=== PATIENT | female | born 1960 ===

== ENCOUNTER → 2018-01-08 | Outpatient (CLI) | payer OTHER ==
[~2018-01-08] MED LIST: ALBU8.5H IH; AZIT-1 PO; BENZ100C4 PO; BLOO-1456 MC; BLOO-725 MC; BLOO1STR38 MC; CETI-169 PO; CHOL200025 PO; CIPR-344 PO; INSU100I28 SQ; INSU100I30 SQ; INSU100V24 SQ; LEVO-85 PO; LEVO25TA61 PO; LEVO50TA86 PO; LEVO75TA73 PO; LEVO88TA45 PO; LISI-362 PO; METR-160 PO; PNEI IJ; PRAV40TA78 PO; ROSU20TA13 PO; TRAM-420 PO; VENL150C61 PO; VENL75CA58 PO
== END ==
LOC: LAB 09:48
PROVIDERS: ATTEND Emergency Medicine
DX: E11.9 Type 2 diabetes mellitus without complications (principal)
CPT/HCPCS: 36415; 82310; 82374; 82435; 82565; 82947; 83036; 84132; 84295; 84520

== ENCOUNTER → 2018-01-09 | Outpatient (CLI) | payer OTHER ==
[~2018-01-09] MED LIST changes: +IOPAMIDOL 76% 100 ML INFUS BTL 0 ML ONE
--- NOTE | 2018-01-09 15:26 | RADIOLOGY IMAGING REPORT ---
FACILITY: [facility] PATIENT NAME: Valeria Blackwell : 1960 MR: [id number] V: [id number] EXAM DATE: ORDERING PHYSICIAN: DANIELLE MAZARIEGOS TECHNOLOGIST: Location: Patient: Valeria Blackwell : 1960 Visit/Account:[id number] Date of Sevice: 01/09/2018 EXAMINATION: CT abdomen and pelvis without IV contrast HISTORY: Left lower abdominal pain. TECHNIQUE: Axial CT images of the abdomen and pelvis were obtained without IV contrast, with saucedo l and sagittal 2D reconstructed images. One of the following dose optimization techniques was utilized in the performance of this exam: Autom ated exposure control; adjustment of the mA and/or kV according to the patient's size; or use of an i terative reconstruction technique. Specific details can be referenced in the facility's radiology C T exam operational policy. COMPARISON: None. FINDINGS: Evaluation of the solid and viscus parenchymal organs is limited without the benefit of IV contrast. Liver: Negative. Gallbladder and bile ducts: Cholecystectomy. No bile duct dilatation. Spleen: Negative. Pancreas: Negative. Adrenal glands: Negative. Kidneys: Negative. No urinary calculi or hydronephrosis. Bowel and peritoneum: The small bowel and colon are normal in caliber, without evidence of obstructi on or any focal inflammatory process. Normal appendix. No free fluid or free intraperitoneal air. Mod erate hiatal hernia. Pelvic structures: Negative. Lymph node assessment: Negative. Vessels: Normal caliber abdominal aorta. Musculoskeletal: Scattered degenerative changes throughout the spine. No acute osseous findings. Body wall: Negative. Lung bases: Negative. IMPRESSION: 1. No acute intra-abdominal findings by noncontrast CT imaging. No source of left-sided pain is ident ified. 2. Cholecystectomy. 3. Moderate hiatal hernia. Report Dictated By: Aron Vasquez MD at 01/09/2018 3:15 PM Report E-Signed By: Aron Vasquez MD at 01/09/2018 3:21 PM WSN:[id number]
== END ==
LOC: RAD 14:04
PROVIDERS: ATTEND Emergency Medicine
DX: K44.9 Diaphragmatic hernia without obstruction or gangrene (principal); Z90.49 Acquired absence of other specified parts of digestive tract
CPT/HCPCS: 74176; Q9967

== ENCOUNTER → 2018-01-22 | Outpatient (CLI) | payer OTHER ==
[~2018-01-22] MED LIST changes: -IOPAMIDOL 76% 100 ML INFUS BTL 0 ML ONE; -ROSU20TA13 PO; +ROSU20TA5 PO
== END ==
LOC: LAB 13:53
PROVIDERS: ATTEND Emergency Medicine
DX: E03.9 Hypothyroidism, unspecified (principal)
CPT/HCPCS: 84443

== ENCOUNTER → 2018-01-31 | Outpatient (CLI) | payer OTHER ==
[2018-01-31 14:08] LABS: PLATELET COUNT, AUTOMATED 111 K/uL (150-450)
[2018-01-31 14:18] LABS: LDL CHOLESTEROL 47 mg/dl
== END ==
LOC: LAB 13:38
PROVIDERS: ATTEND Emergency Medicine
DX: E11.9 Type 2 diabetes mellitus without complications (principal); R79.89 Other specified abnormal findings of blood chemistry; R53.83 Other fatigue
CPT/HCPCS: 36415; 82040; 82247; 82310; 82374; 82435; 82465; 82565; 82947; 83718; 84075; 84132; 84155; 84295; 84439; 84443; 84450; 84460; 84478; 84481; 84520; 85025; 86140; 86803

== ENCOUNTER → 2018-03-16 | Outpatient (CLI) | payer OTHER | LOC: RESP 20:02 | PROVIDERS: ATTEND Emergency Medicine | DX: G47.33 Obstructive sleep apnea (adult) (pediatric) (principal); G47.61 Periodic limb movement disorder; G47.36 Sleep related hypoventilation in conditions classified elsewhere ==

== ENCOUNTER → 2018-03-21 | Outpatient (CLI) | payer OTHER | LOC: LAB 14:16 | PROVIDERS: ATTEND Emergency Medicine | DX: Z02.9 Encounter for administrative examinations, unspecified (principal) ==

== ENCOUNTER → 2018-04-16 | Outpatient (CLI) | payer OTHER | LOC: LAB 16:23 | PROVIDERS: ATTEND Emergency Medicine | DX: E11.9 Type 2 diabetes mellitus without complications (principal); R79.89 Other specified abnormal findings of blood chemistry | CPT/HCPCS: 36415; 83036; 84443; 86376; 86800 ==

== ENCOUNTER → 2018-04-19 | Outpatient (CLI) | payer OTHER | LOC: RESP 20:07 | PROVIDERS: ATTEND Emergency Medicine | DX: G47.33 Obstructive sleep apnea (adult) (pediatric) (principal); G47.36 Sleep related hypoventilation in conditions classified elsewhere ==

== ENCOUNTER → 2018-06-28 | Outpatient (CLI) | payer OTHER ==
[~2018-06-28] MED LIST changes: -METR-160 PO; +METR500T54 PO
--- NOTE | 2018-06-28 09:44 | EKG ---
FACILITY: [facility] PATIENT NAME: RICKY PERKINS : [id number] MR: [id number] V: [id number] EXAM DATE: ORDERING PHYSICIAN: RICKEY CRYSTAL TECHNOLOGIST: Test Reason : Pre-op Blood Pressure : / mmHG Vent. Rate : 076 BPM Atrial Rate : 076 BPM P-R Int : 172 ms QRS Dur : 092 ms QT Int : 380 ms P-R-T Axes : 084 007 040 degrees QTc Int : 427 ms Sinus rhythm Possible left atrial enlargement Borderline left axis Confirmed by JUNE US ([id number] on 06/28/2018 7:50:03 PM Referred By: Confirmed By:JUNE US
== END ==
LOC: LAB 09:07
PROVIDERS: ATTEND Internal Medicine
DX: Z79.4 Long term (current) use of insulin (principal); E11.9 Type 2 diabetes mellitus without complications
CPT/HCPCS: 93005

== ENCOUNTER → 2018-06-28 | Outpatient (CLI) | payer OTHER ==
[2018-06-28 09:58] LABS: PLATELET COUNT, AUTOMATED 122 K/uL (150-450)
== END ==
LOC: LAB 09:04
PROVIDERS: ATTEND Orthopaedic Surgery
DX: Z01.812 Encounter for preprocedural laboratory examination (principal); Z01.810 Encounter for preprocedural cardiovascular examination; I10 Essential (primary) hypertension
CPT/HCPCS: 36415; 82040; 82247; 82310; 82374; 82435; 82565; 82947; 83036; 84075; 84132; 84155; 84295; 84450; 84460; 84520; 85025

== ENCOUNTER → 2018-10-10 | Outpatient (CLI) | payer OTHER ==
[~2018-10-10] MED LIST changes: +BLOO-1326 MC; +BLOO-188 MC; +DOXY-179 PO; +DULA0.75 SC; +METF10002 PO; +METR500T15 PO; -METR500T54 PO
== END ==
LOC: LAB 15:02
PROVIDERS: ATTEND Emergency Medicine
DX: N39.0 Urinary tract infection, site not specified (principal); R19.7 Diarrhea, unspecified
CPT/HCPCS: 81001; 87088

== ENCOUNTER → 2019-02-19 | Outpatient (CLI) | payer OTHER ==
[~2019-02-19] MED LIST changes: +LEVO25TA57 PO; +ROSU20TA24 PO
[2019-02-19 07:33] LABS: PLATELET COUNT, AUTOMATED 108 K/uL (150-450)
[2019-02-19 08:59] LABS: LDL CHOLESTEROL 40 mg/dl
== END ==
LOC: LAB 07:02
PROVIDERS: ATTEND Emergency Medicine
DX: E03.9 Hypothyroidism, unspecified (principal); I10 Essential (primary) hypertension; E11.9 Type 2 diabetes mellitus without complications
CPT/HCPCS: 36415; 82040; 82247; 82310; 82374; 82435; 82465; 82565; 82607; 82947; 83036; 83718; 84075; 84132; 84155; 84295; 84443; 84450; 84460; 84478; 84520; 85025